=== PATIENT | female | born 1960 ===

== ENCOUNTER 2018-03-14 14:29 | Outpatient (CLI) | payer OTHER ==
[~2018-03-14 14:29] MED LIST: CARDURA8 MG; CATAFLAM50 MG PO; CIPRO500 MG PO; CODE1TAB37 PO; FEROSUL325 ( 65 ) PO; HYOSCYAMINE0.125 M1 PO; ORPH100T PO; TUSSIONEX PENNKI5 ML PO
== END 2018-03-14 14:30 | disposition home or self-care (01) ==
LOC: LAB 14:29
DX: B95.4 Other streptococcus as the cause of diseases classified elsewhere (principal)

== ENCOUNTER 2021-08-12 08:05 | Emergency (ER) | payer OTHER ==
[~2021-08-12] VITALS: Ht 157.5 cm; Wt 83.0 kg
== END 2021-08-12 10:29 | disposition home or self-care (01) ==
LOC: ER 08:05
DX: M62.838 Other muscle spasm (principal)

== ENCOUNTER 2022-04-13 22:44 | Emergency (ER) | payer OTHER ==
[~2022-04-13] VITALS: Ht 157.5 cm; Wt 72.6 kg
[2022-04-14] MEDS ORDERED: PERCOCET 5-3251 EACH PO (07:56)
[2022-04-14] MEDS ORDERED: CIPROFLOXACIN500 MG PO (07:56)
== END 2022-04-14 13:51 | disposition home or self-care (01) ==
LOC: ER 22:44
DX: N39.0 Urinary tract infection, site not specified (principal); Z91.041 Radiographic dye allergy status; Z91.018 Allergy to other foods; Z88.0 Allergy status to penicillin; Z88.2 Allergy status to sulfonamides; N20.1 Calculus of ureter

== ENCOUNTER 2022-10-07 17:09 | Emergency (ER) | payer OTHER ==
[~2022-10-07] VITALS: Ht 157.5 cm; Wt 77.1 kg
[~2022-10-07 17:09] MED LIST changes: +CIPROFLOXACIN500 MG PO; +PERCOCET 5-3251 EACH PO
[2022-10-07] MEDS ORDERED: ATACAND HCT 321 EACH (17:41)
== END 2022-10-07 20:02 | disposition home or self-care (01) ==
LOC: ER 17:09
DX: R00.2 Palpitations (principal); I10 Essential (primary) hypertension; Z88.2 Allergy status to sulfonamides; Z88.0 Allergy status to penicillin; Z91.041 Radiographic dye allergy status